=== PATIENT | male | born 1970 | race Caucasian/White ===

== ENCOUNTER → 2018-12-06 10:46 | Outpatient (CLI) | payer BC, SELFPAY ==
--- NOTE | 2018-12-06 10:54 | FL_ITS ---
PROCEDURE: FL UPPER GI W AIR CLINICAL INDICATION: DYSPHAGIA COMPARISON: No exams were available for comparison TECHNIQUE: FLUOROSCOPY TIME : 1 minutes and 4 seconds FINDINGS: The esophagus, stomach, and duodenum have an unremarkable appearance.There is no evidence of hiatal hernia. No ulcer or mass evident. There is mild mucosal thickening in of the distal aspect of the duodenal bulb with some nodularity of the mucosa which may be seen with duodenitis. No definite ulcer is evident. There is normal peristalsis. The duodenal C-loop is nondisplaced. IMPRESSION: Possible duodenitis otherwise negative Dictated by: Glen Han MD 12/06/2018 17:30 Electronically signed by Glen Han MD in [place] 12/06/2018 17:30
== END ==
PROVIDERS: PCP Family Medicine; Visit Provider Physician Assistant
DX: R13.10 Dysphagia, unspecified (principal)
CPT/HCPCS: 74247

== ENCOUNTER → 2020-11-05 08:48 | Outpatient (CLI) | payer BC, SELFPAY ==
--- NOTE | 2020-11-05 08:57 | XR_ITS ---
PROCEDURE: XR KNEE RT 3V CLINICAL INDICATION: ÁNGEL KNEE PAIN COMPARISON: No exams were available for comparison FINDINGS: No fracture or dislocation. No lytic or blastic change. There is normal mineralization. Mild osteoarthritic changes are present in all 3 compartments with slight loss of joint space and minimal osteophyte formation medially and at the patellofemoral joint. Other findings:None. IMPRESSION: Mild osteoarthritis Dictated by: Glen Han MD 11/05/2020 11:43 Glen Han MD in [place] 11/05/2020 11:43
--- NOTE | 2020-11-05 08:57 | XR_ITS ---
PROCEDURE: XR KNEE LT 3V CLINICAL INDICATION: ÁNGEL KNEE PAIN COMPARISON: No exams were available for comparison FINDINGS: No fracture or dislocation. No lytic or blastic change. There is normal mineralization. Mild osteoarthritic changes are present involving all 3 compartments with slight decrease in joint space and small osteophytes at the medial compartment and patellofemoral joint. Other findings:None. IMPRESSION: Mild osteoarthritis Dictated by: Glen Han MD 11/05/2020 11:43 Glen Han MD in [place] 11/05/2020 11:43
[2020-11-05 10:03] LABS: Chloride 107 mmol/L (98-107)
[2020-11-05 10:04] LABS: Potassium 4.3 mmoL/L (3.5-5.1); Sodium 143 mmol/L (136-145)
[2020-11-05 10:06] LABS: Alanine Aminotransferase 20 U/L (12-78); Anion Gap 14.3 mEq/L (5-15); Aspartate Amino Transferase 21 U/L (17-59); Blood Urea Nitrogen 15 mg/dl (9-20); Carbon Dioxide 26 mmol/L (22.0-30.0); Estimated Glomerular Filt Rate 80 ml/min (>60); GFR (African American) 97 ML/MIN (>60)
[2020-11-05 10:07] LABS: Albumin Level 4.1 g/dl (3.5-5.0); Albumin/Globulin Ratio 1.7 (1.1-1.8); Alkaline Phosphatase 87 U/L (38-126); Bilirubin,Total 0.5 mg/dl (0.2-1.3); Calcium 8.7 mg/dl (8.4-10.2); Chol/HDL Ratio 4.9 (1-3.5); Cholesterol 175 mg/dl (140-200); Globulin 2.4 g/dL (1.3-3.2); Glucose 127 mg/dl (74-100); HDL Cholesterol 36 mg/dl (40-60); Total Protein,Serum 6.5 g/dl (6.3-8.2); Triglycerides 226 mg/dl (30-150); VLDL Cholesterol 45 mg/dL (0-40)
[2020-11-05 10:18] LABS: Direct LDL Cholesterol 104.43 mg/dL (100-129)
== END ==
PROVIDERS: PCP Family Medicine; Visit Provider Physician Assistant
DX: M25.562 Pain in left knee (principal); M25.561 Pain in right knee; E78.2 Mixed hyperlipidemia; R73.01 Impaired fasting glucose
CPT/HCPCS: 36415; 73562; 80053; 80061; 83036

== ENCOUNTER → 2021-04-27 11:32 | Outpatient (CLI) | payer BC, SELFPAY ==
[2021-04-27 13:23] LABS: Chloride 104 mmol/L (98-107)
[2021-04-27 13:24] LABS: Potassium 4.2 mmoL/L (3.5-5.1); Sodium 134 mmol/L (136-145)
[2021-04-27 13:26] LABS: Alanine Aminotransferase 38 U/L (12-78); Anion Gap 7.2 mEq/L (5-15); Aspartate Amino Transferase 30 U/L (17-59); Blood Urea Nitrogen 11 mg/dl (9-20); Carbon Dioxide 27 mmol/L (22.0-30.0); Estimated Glomerular Filt Rate 90 ml/min (>60); GFR (African American) 109 ML/MIN (>60)
[2021-04-27 13:27] LABS: Albumin Level 4.2 g/dl (3.5-5.0); Albumin/Globulin Ratio 1.8 (1.1-1.8); Alkaline Phosphatase 114 U/L (38-126); Bilirubin,Total 0.7 mg/dl (0.2-1.3); Cholesterol 211 mg/dl (140-200); Globulin 2.4 g/dL (1.3-3.2); Glucose 140 mg/dl (74-100); HDL Cholesterol 35 mg/dl (40-60); Total Protein,Serum 6.6 g/dl (6.3-8.2); Triglycerides 244 mg/dl (30-150); VLDL Cholesterol 49 mg/dL (0-40)
[2021-04-27 13:38] LABS: Direct LDL Cholesterol 132.85 mg/dL (100-129)
== END ==
PROVIDERS: PCP Family Medicine; Visit Provider Family Medicine
DX: E78.5 Hyperlipidemia, unspecified (principal); E87.6 Hypokalemia
CPT/HCPCS: 36415; 80053; 80061

== ENCOUNTER 2022-03-23 10:05 | Day surgery (SDC) | payer BC, SELFPAY ==
[2022-02-24 13:15] VITALS: BMI 32.8
[2022-03-23 10:30] VITALS: BP 155/93; PULSE 70; RESP 20; TEMP 36.7; O2SAT 94
[2022-03-23 11:18] VITALS: O2SAT 98
--- NOTE | 2022-03-23 11:25 | P.PN_ITS ---
[facility] Disclaimer: The information contained in this section may have been updated after the patient was seen, as this information can be updated by other users. Medical History (Updated 02/24/22 @ 13:12 by Letha Merritt RN) History of deviated nasal septum Hyperlipidemia Surgical History History of nasal surgery Family History Other Family history of diabetes mellitus type II Family history of myocardial infarction Social History Smoking Status: Never smoker alcohol intake: never substance use type: denies use current occupational status: employed Travel in the last 8 weeks: None household members: family and children housing: house lives independently: Yes marital status: education level: high school special patricia needs: No agree to transfusion: No do you feel safe at home: Yes victim of physical abuse: No victim of emotional abuse: No victim of sexual abuse: No would you like helpful sources: No [facility] Anesthesia Checklist Patient Identification Patient Identification: Arm Band Structural Data Admitted From: Home Planned Operative Procedure/s: colonoscopy Consent for Planned Operative Procedure(s) Verified: Yes Verified Documents: Surgical Consent and History and Physical NPO Status Verified Time NPO: 00:00 Additional verifications Anesthesia Reactions: No Airway Assessment C-Spine Mobility Assessed: Yes TMJ Mobility Assessed: Yes Dentition: Edentulous Neurological Assessment Level of Consciousness: Awake and Alert Anesthesia Plan Anesthesia Risk discussed: Yes Anesthesia Plan: Verified ASA Class: II Anesthesia Type: MAC
[2022-03-23 11:35] VITALS: BP 131/63; PULSE 75; RESP 18; TEMP 36.6; O2SAT 97
--- NOTE | 2022-03-23 11:36 | HMH.SCOPE ---
Procedure: Date: 03/23/22 Patient Date of :: 1970 Procedure Performed:: Colonoscopy Indications:: Screening Performing Provider:: Fito Alas MD Referring Provider:: Roxanna Case APRN Sedation:: See RN records Procedure:: After placing the patient in the left lateral decubitus position, the colonoscopy was gently inserted into the rectum and under direct visualization advanced to the cecum which was identified by transillumination in the right lower quadrant, identification of the ileocecal valve, appendiceal orifice, and cecal strap. Color, texture, mucosa, and anatomy of the colon were carefully examined with the scope. Findings:: Anal canal: normal Rectum: normal Sigmoid colon: Two sessile polyps less than 5 mm in size. Removed with cold forceps Descending colon: normal without polyps or inflammatory changes Splenic flexure: normal Transverse colon: normal without polyps or inflammatory changes Hepatic flexure: normal Ascending colon: normal without polyps or inflammatory changes Cecum:Sessile polyp less than 5 mm in size. Removed with cold forceps Terminal ileum: not visualized Impression: Polyps of cecum and ascending colon Recommendations:: Await pathology results Complications:: None Estimated blood obtained (mL): 0
[2022-03-23 11:45] VITALS: BP 110/68; PULSE 63; RESP 17; O2SAT 96
[2022-03-23 11:55] VITALS: BP 121/81; PULSE 61; RESP 17; O2SAT 98
[2022-03-23 12:05] VITALS: BP 125/84; PULSE 64; RESP 18; O2SAT 99
== END 2022-03-23 12:25 | disposition home or self-care (01) ==
PROVIDERS: PCP Physician Assistant; Visit Provider Internal Medicine
PROC: 0DJD8ZZ Inspection of Lower Intestinal Tract, Via Natural or Artificial Opening Endoscopic (ICD-10-PCS; CPT 45378; principal; 2022-03-23 11:00)
DX: Z12.11 Encounter for screening for malignant neoplasm of colon (principal); D12.0 Benign neoplasm of cecum; Z79.899 Other long term (current) drug therapy
CPT/HCPCS: 45380; 88305